=== PATIENT | female | born 1950 | race Caucasian/White ===

== ENCOUNTER 2018-10-06 06:09 | Day surgery (SDC) | payer MEDICARE ==
[~2018-10-06] VITALS: Ht 160 cm; Wt 74.7 kg
[~2018-10-06 06:09] MED LIST: ABAT125S SQ; ASPI-1197 PO; BUPR300T53 PO; CALC-268 PO; FOLI1TAB15 PO; LOSA50TA2 PO; METH2.5T6 PO; METO25TA6 PO; OMEG-116 PO; OMEP20TA2 PO; RANI150T7 PO; RIVA20TA PO; ROSU5TAB11 PO; SODIUM CHLORIDE 0.9% 1000ML 1,000 ML IV ONE; TRAZ-185 PO; TURM500C9 PO; TURMERIC PO
[2018-10-06 06:34] VITALS: BP 150/75
[2018-10-06] MEDS ORDERED: PROPOFOL 10 MG/ML 20ML VIAL IV ONE (07:16)
[2018-10-06 07:32] VITALS: BP 136/63
[2018-10-06 07:37] VITALS: BP 126/61
[2018-10-06 07:42] VITALS: BP 131/69
[2018-10-06 07:52] VITALS: BP 142/65
--- NOTE | 2018-10-06 08:20 | NUR ---
PT STABLE NO DISTRESS ON ARRIVAL TO GI RECOVERY. PT STATES NO C/O PAIN S/P PROCEDURE. POST CARE INSTRUCTIONS GIVEN TO PT AND SISTER, INSTRUCTED PT TO START WITH SOFT FOODS, SOUPS, THEN MAY ADVANCE DIET AT TOLERATED. INSTRUCTED TO HYDRATE THROUGH OUT DAY, PLENTY OF WATER. PT AND SISTER VERBALIZED UNDERSTANDING, PT DRESSED BY SISTER, PLACED IN WHEELCHAIR, AND DRIVEN HOME BY SISTER.
== END 2018-10-06 08:20 | disposition home or self-care (01) ==
LOC: ENDO 06:09 → DAH 06:09 → ENDO 08:20
PROVIDERS: ATTEND Internal Medicine
DX: K85.10 Biliary acute pancreatitis without necrosis or infection (principal); K31.89 Other diseases of stomach and duodenum; E78.5 Hyperlipidemia, unspecified; I10 Essential (primary) hypertension; F41.9 Anxiety disorder, unspecified; F32.9 Major depressive disorder, single episode, unspecified; M19.90 Unspecified osteoarthritis, unspecified site; Z98.51 Tubal ligation status; Z98.890 Other specified postprocedural states; Z79.899 Other long term (current) drug therapy; Z79.01 Long term (current) use of anticoagulants
CPT/HCPCS: 43237; 93005; A4606; J2704; J7030; 43231